=== PATIENT | male | born 1995 | race Caucasian/White ===

== ENCOUNTER 2019-04-08 21:00 | Emergency (ER) | payer OTHER ==
--- NOTE | 2019-04-08 21:46 | PDOC ---
Rapid Medical Evaluation Chief Complaint: HIV Testing Time Seen by Provider: 04/08/19 21:44 Medical Evaluation: 04/08/19 21:45 I have performed a brief in-person evaluation of this patient. The patient presents with a chief complaint of: present for STD testing due to unprotected sex with multiple partners. report no symptoms Pertinent physical exam findings: A&O x 3 in NAD I have ordered the following: rpr, hiv, GC/CHL testing The patient will proceed to the ED for further evaluation. Discharge Disposition - Diagnosis Screening examination for sexually transmitted disease - Discharge Dispostion Condition at time of disposition: Stable - Referrals - Patient Instructions - Post Discharge Activity
[2019-04-08 21:47] VITALS: BP 137/71; PULSE 77; TEMP 97.7; BMI 25.7
[2019-04-08] MEDS ORDERED: AZITHROMYCIN 500 MG TABLET PO ONE (22:46)
--- NOTE | 2019-04-08 22:46 | PDOC ---
History of Present Illness - General Chief Complaint: HIV Testing Stated Complaint: PAIN Time Seen by Provider: 04/08/19 21:44 History Source: Patient - History of Present Illness Initial Comments: 24 year old male reports that he had unprotected sex with multiple female partner. patient reports slight dysuria, denies penile discharge, testicular pain or abdominal pain no pmhx patient refused HIV testing Past History - Past Medical History Allergies/Adverse Reactions: Allergies Allergy/AdvReac Type Severity Reaction Status Date / Time No Known Allergies Allergy Verified 04/08/19 21:47 COPD: No - Immunization History Immunization Up to Date: Yes - Psycho Social/Smoking Cessation Hx Smoking History: Current every day smoker Have you smoked in the past 12 months: Yes Number of Cigarettes Smoked Daily: 5 Information on smoking cessation initiated: No Hx Alcohol Use: No Drug/Substance Use Hx: No Review of Systems - Review of Systems Able to Perform ROS?: Yes Is the patient limited Sinhala proficient: No : Yes: Dysuria *Physical Exam - Vital Signs Last Vital Signs Temp Pulse Resp BP Pulse Ox 97.7 F 77 17 137/71 99 04/08/19 21:43 04/08/19 21:43 04/08/19 21:43 04/08/19 21:43 04/08/19 21:43 - Physical Exam General Appearance: Yes: Appropriately Dressed Respiratory/Chest: positive: Lungs Clear, Normal Breath Sounds Male Genitalia: positive: normal genitalia. negative: discharge, testicular tenderness, testicular mass, epididymus tender, inguinal hernia, CVAT Extremity: positive: Normal Capillary Refill, Normal Inspection, Normal Range of Motion Neurologic: positive: Fully Oriented, Alert Medical Decision Making - Medical Decision Making STI exposure? P: GC RPR Ceftriaxone azithromycin Discharge - Discharge Information Problems reviewed: Yes Clinical Impression/Diagnosis: Screening examination for sexually transmitted disease Condition: Stable Disposition: HOME - Follow up/Referral - Patient Discharge Instructions Patient Printed Discharge Instructions: Facts About Sexually Transmitted Infections Additional Instructions: you were treated for presumptive chlamydia/ gonorrhea. your test is pending. we will call you if it is positive. it is important for your partner is also treated, - Post Discharge Activity Work/Back to School Note: Back to Work
== END 2019-04-08 23:50 | disposition home or self-care (01) ==
LOC: JERFT 21:00
DX: Z11.3 Encounter for screening for infections with a predominantly sexual mode of transmission (principal)
CPT/HCPCS: 36415; 86593; 87491; 87591; 99281-25

== ENCOUNTER 2020-08-11 18:31 | Emergency (ER) | payer OTHER ==
[2020-08-11 18:46] VITALS: BP 112/72; PULSE 78; TEMP 98.7; BMI 25.7
[2020-08-11 20:34] LABS: URINE APPEARANCE TURBID; URINE BILIRUBIN NEGATIVE (NEGATIVE); URINE COLOR YELLOW; URINE GLUCOSE (UA) NEGATIVE (NEGATIVE); URINE KETONE NEGATIVE (NEGATIVE); URINE LEUK ESTERASE NEGATIVE (NEGATIVE); URINE NITRITE NEGATIVE (NEGATIVE); URINE PROTEIN NEGATIVE (NEGATIVE)
== END 2020-08-11 20:45 | disposition home or self-care (01) ==
LOC: JERFT 18:31
DX: M25.571 Pain in right ankle and joints of right foot (principal); Z11.3 Encounter for screening for infections with a predominantly sexual mode of transmission
CPT/HCPCS: 36415; 73610-TC-RT-FY; 81003; 87086; 87491; 87591; 99284-25

== ENCOUNTER 2023-04-12 22:04 | Emergency (ER) | payer OTHER ==
[2023-04-12 22:10] VITALS: BP 96/60; PULSE 54; RESP 18; TEMP 98; BMI 20.3
[2023-04-12] MEDS ORDERED: ACETAMINOPHEN 500 MG TABLET (FP) PO ONE (22:35)
[2023-04-12] MEDS ORDERED: ACETAMINOPHEN 500 MG TABLET (FP) ONE (23:23)
== END 2023-04-13 00:37 | disposition home or self-care (01) ==
LOC: JER 22:04
DX: R05.9 Cough, unspecified (principal); R68.83 Chills (without fever); J11.1 Influenza due to unidentified influenza virus with other respiratory manifestations; M79.10 Myalgia, unspecified site; Z20.822 Contact with and (suspected) exposure to COVID-19
CPT/HCPCS: 0241U-QW; 99283-25

== ENCOUNTER 2024-11-05 00:10 | Emergency (ER) | payer SELFPAY ==
[2024-11-05 00:19] VITALS: BP 111/68; PULSE 92; RESP 20; TEMP 98.1; BMI 20.3
[2024-11-05] MEDS ORDERED: CEPHALEXIN MONOHYDRATE 500 MG CAPSULE (UD) ONE (00:49)
[2024-11-05] MEDS ORDERED: ACETAMINOPHEN 325 MG TABLET (FP) ONE (00:49)
[2024-11-05] MEDS: CEPHALEXIN MONOHYDRATE 500 MG CAPSULE (UD) PO ONE (00:57)
[2024-11-05] MEDS: ACETAMINOPHEN 325 MG TABLET (FP) PO ONE (00:57)
[2024-11-05 02:30] LABS: HIV INTERPRETATION NEGATIVE (NEGATIVE)
[2024-11-05 16:27] LABS: HCV DIAGNOSTIC IN-HOUSE W/RFLX NON-REACTIVE (NONREACTIVE)
== END 2024-11-05 02:01 | disposition home or self-care (01) ==
LOC: JER 00:10
DX: L03.116 Cellulitis of left lower limb (principal)
CPT/HCPCS: 36415; 73630-TC-LT; 82962; 86803; 87389; 99284-25